=== PATIENT | female | born 1935 | race Caucasian/White ===

== ENCOUNTER 2019-06-17 07:50 | Observation (INO) | payer OTHER ==
[2019-06-15 12:14] LABS: BASOPHILS % (AUTO) 0.3 % (0.0-5.0); EOSINOPHILS % (AUTO) 1.8 % (0.0-8.0); HEMATOCRIT 36.9 % (36-48); LYMPHOCYTES % (AUTO) 15.2 % (21.0-51.0); MEAN CORPUSCULAR HEMOGLOBIN 28.8 pg (27.0-33.0); MEAN CORPUSCULAR HGB CONC 31.7 g/dL (32.0-36.0); MEAN CORPUSCULAR VOLUME 90.9 fL (79-99); MONOCYTES % (AUTO) 8.2 % (3.0-13.0); NEUTROPHILS % (AUTO) 74.4 % (40.0-77.0); PLATELET COUNT (AUTO) 266 K/uL (130-400); RED BLOOD CELL COUNT(AUTO) 4.06 MIL/uL (4.00-5.50); RED CELL DISTRIBUTION WIDTH 15.3 % (11.0-15.5); WHITE BLOOD COUNT (AUTO) 7.2 K/uL (4.8-10.8)
[2019-06-15 12:16] LABS: POTASSIUM 4.6 mmol/L (3.5-5.1)
[2019-06-15 12:25] LABS: INR 0.99 (0.85-1.15); PARTIAL THROMBOPLASTIN TIME 25.9 SEC (26.3-35.5); PROTHROMBIN TIME 10.4 SEC (9.6-11.6)
[2019-06-15 12:28] LABS: APPEARANCE,URINE Clear (CLEAR); BILIRUBIN,URINE Negative (NEGATIVE); COLOR,URINE Yellow (YELLOW); GLUCOSE, URINE (UA) Negative (NEGATIVE); KETONES,URINE Negative (NEGATIVE); LEUKOCYTE ESTERASE ,URINE Moderate (NEGATIVE); NITRATE,URINE Negative (NEGATIVE); OCCULT BLOOD,URINE Negative (NEGATIVE); PH,URINE 6.5 (5.0-8.0); PROTEIN,URINE Negative (NEGATIVE); UROBILINOGEN,URINE 0.2 mg/dL (0.2-1.0)
[2019-06-15 12:33] LABS: BACTERIA,URINE Rare /HPF (None Seen); RBC,URINE 0-1 /HPF (0-1); SQUAMOUS EPITHELIAL CELL,UR Rare /HPF (0-2); WBC,URINE 0-1 /HPF (0-1)
[2019-06-15 12:58] VITALS: BP 118/56
[~2019-06-17] VITALS: Ht 157.5 cm; Wt 92.9 kg
[~2019-06-17 07:50] MED LIST: ACET-2893 PO; ASPI-555 PO; CYAN-35 PO; FLUO10CA22 PO; FURO40TA5 PO; INSLAN SQ; ISOS30TA6 PO; LEVO75TA10 PO; LISI2.5T2 PO; METF-446 PO; METO-391 PO; MULT1TAB70 PO; OXYB-66 PO; PREG200C28 PO; ROSU10TA28 PO; SITA100T12 PO
[2019-06-17 08:40] VITALS: BP 113/63
[2019-06-17] MEDS: SODIUM CHLORIDE 0.9% 1000ML 1,000 ML IV SCH ×3 (10:32→17:01)
--- NOTE | 2019-06-17 12:05 | NUR ---
PT LEFT VIA WHEELCHAIR IN PVT CAR, NO COMPLICATIONS, DRESSING IS DRY AND INTACT. NO PAIN, D/C INSTRUCTIONS GIVEN TO SON. PT STABLE
[2019-06-17] MEDS ORDERED: HEPARIN SODIUM 1000UNIT/ML 10ML VIAL ONE (12:17)
[2019-06-17] MEDS ORDERED: IOHEXOL-350 50ML VIAL IV ONE ×2 (12:17→13:45)
[2019-06-17] MEDS ORDERED: NITROGLYCERIN 2 MG/VIAL VIAL IV ONE (12:17)
[2019-06-17] MEDS ORDERED: IOHEXOL 350 MG/ML 100ML INFUS..BTL IV ONE (12:17)
[2019-06-17] MEDS ORDERED: LIDOCAINE HCL 2% 20ML ONE (12:17)
[2019-06-17] MEDS ORDERED: SODIUM BICARB 50MEQ 50ML VIAL ONE (12:17)
[2019-06-17] MEDS ORDERED: MIDAZOLAM HCL 1 MG/ML 2ML VIAL ONE ×2 (12:41→12:56)
[2019-06-17] MEDS ORDERED: MEPERIDINE-PF 25 MG/ML SYG ONE ×2 (12:41→12:56)
[2019-06-17] MEDS ORDERED: CLOPIDOGREL BISULFATE 300 MG TAB ONE (13:50)
[2019-06-17] MEDS ORDERED: ASPIRIN 81MG TAB.CHEW ONE (13:51)
[2019-06-17] MEDS ORDERED: CLOPIDOGREL BISULFATE 300 MG TAB PO SCH (14:30)
[2019-06-17] MEDS ORDERED: ACETAMINOPHEN EXTENDED RELEASE 650 MG TABLET PO PRN (14:30)
[2019-06-17] MEDS ORDERED: ACETAMINOPHEN-CODEINE 300/30MG TAB PO PRN ×2 (14:30)
[2019-06-17] MEDS ORDERED: DEXTROSE 50%-WATER 50 ML DISP.SYRIN IV PRN (14:30)
[2019-06-17] MEDS ORDERED: GLUCAGON 1MG KIT 1 MG ML IM PRN (14:30)
[2019-06-17] MEDS ORDERED: ONDANSETRON HCL 4 MG/2 ML VIAL IVP PRN (14:30)
[2019-06-17 14:45] VITALS: BP 122/65
[2019-06-17 16:30] VITALS: BP 133/64
[2019-06-17] MEDS: INSULIN HUMULIN R 100 UNIT/ML 3ML SQ SCH ×2 (16:30→20:53)
[2019-06-17 19:00] VITALS: BP 116/56
--- NOTE | 2019-06-17 19:35 | NUR ---
PM NOTE PATIENT RESTING IN BED, NO S/S OF DISTRESS. PATIENT DENIES PAIN AT THIS TIME. NO SHORTNESS OF BREATH NOTED. PATIENT ON ROOM AIR, ON TELEMETRY PATIENT IS PACED AT 64. SITE C/D/I. NO HEMATOMA/BLEEDING NOTED. REMINDED THAT BEDREST IS UP AT 2100. CALL LIGHT WITHIN REACH. INSTRUCTED TO CALL FOR ASSISTANCE. VERBALIZED UNDERSTANDING.
[2019-06-17] MEDS: METOPROLOL TARTRATE 25 MG TAB PO SCH (20:48)
[2019-06-17] MEDS ORDERED: PREGABALIN 100 MG CAPSULE PO SCH (21:00)
[2019-06-17] MEDS ORDERED: LINAGLIPTIN 5 MG TABLET PO SCH (21:00)
[2019-06-17] MEDS ORDERED: ATORVASTATIN CALCIUM 20 MG TABLET PO SCH (21:00)
[2019-06-17 23:00] VITALS: BP 114/52
[2019-06-18] MEDS: SODIUM CHLORIDE 0.9% 1000ML 1,000 ML IV SCH (00:16)
[2019-06-18 03:38] LABS: HEMATOCRIT 35.9 % (36-48); MEAN CORPUSCULAR HEMOGLOBIN 29.1 pg (27.0-33.0); MEAN CORPUSCULAR HGB CONC 30.4 g/dL (32.0-36.0); PLATELET COUNT (AUTO) 212 K/uL (130-400); RED BLOOD CELL COUNT(AUTO) 3.74 MIL/uL (4.00-5.50); RED CELL DISTRIBUTION WIDTH 17.2 % (11.0-15.5); WHITE BLOOD COUNT (AUTO) 6.2 K/uL (4.8-10.8)
[2019-06-18 03:50] LABS: CREATININE 0.9 mg/dL (0.5-1.5); POTASSIUM 3.4 mmol/L (3.5-5.1)
[2019-06-18 04:00] VITALS: BP 128/71
[2019-06-18 05:11] LABS: PLATELET MORPHOLOGY PLT CLUMPS PRESENT
[2019-06-18] MEDS: INSULIN HUMULIN R 100 UNIT/ML 3ML SQ SCH (06:16)
[2019-06-18] MEDS ORDERED: LEVOTHYROXINE 75 MCG TABLET PO SCH (06:30)
[2019-06-18 07:18] VITALS: BP 123/68
[2019-06-18] MEDS ORDERED: CLOP75TA14 PO (07:43)
[2019-06-18] MEDS: METOPROLOL TARTRATE 25 MG TAB PO SCH (08:23)
[2019-06-18] MEDS ORDERED: FUROSEMIDE 40 MG TABLET PO SCH (09:00)
[2019-06-18] MEDS ORDERED: ISOSORBIDE MONO 30MG TAB SR PO SCH (09:00)
[2019-06-18] MEDS ORDERED: LISINOPRIL 2.5 MG TABLET PO SCH (09:00)
[2019-06-18] MEDS ORDERED: INSULIN GLARGINE 100 UNITS/ML 10 ML VIAL SQ SCH (09:00)
[2019-06-18] MEDS ORDERED: OXYBUTYNIN 5 MG TAB.SR.24H PO SCH (09:00)
[2019-06-18] MEDS ORDERED: MULTIVITAMIN TABLET PO SCH (09:00)
[2019-06-18] MEDS ORDERED: CLOPIDOGREL BISULFATE 75 MG TAB PO SCH (09:00)
[2019-06-18] MEDS ORDERED: FLUOXETINE HCL 10 MG CAPSULE PO SCH (09:00)
[2019-06-18] MEDS ORDERED: ASPIRIN 81 MG EC TAB PO SCH (09:00)
[2019-06-19] MEDS ORDERED: CYANOCOBALAMIN (VITAMIN B-12) 1,000 MCG TABLET PO SCH (09:00)
[2019-08-24] MEDS ORDERED: PEPCID COMPLETE PO (12:44)
[2019-08-24] MEDS ORDERED: POTA20TA82 PO (12:44)
[2019-08-24] MEDS ORDERED: pepcid (12:44)
[2019-08-24] MEDS ORDERED: GABA-529 PO (12:44)
[2019-08-24] MEDS ORDERED: METO-408 PO (12:44)
[2019-08-24] MEDS ORDERED: CLOP75TA32 PO (12:44)
[2019-08-24] MEDS ORDERED: VITA1CAP85 PO (12:49)
[2019-08-24] MEDS ORDERED: OMEP20CA12 PO (12:49)
== END 2019-06-18 11:00 | disposition home or self-care (01) ==
LOC: DAH 07:50 → 2AH 07:51
PROVIDERS: ADMIT Internal Medicine; ATTEND Internal Medicine
DX: I25.119 Atherosclerotic heart disease of native coronary artery with unspecified angina pectoris (principal); I25.82 Chronic total occlusion of coronary artery; I27.20 Pulmonary hypertension, unspecified; I35.0 Nonrheumatic aortic (valve) stenosis; I10 Essential (primary) hypertension; E78.5 Hyperlipidemia, unspecified; E11.9 Type 2 diabetes mellitus without complications; E03.9 Hypothyroidism, unspecified; Z95.1 Presence of aortocoronary bypass graft; Z79.82 Long term (current) use of aspirin; Z79.4 Long term (current) use of insulin; Z79.899 Other long term (current) drug therapy
CPT/HCPCS: 36415 ×3; 71045; 80048 ×2; 81001; 82948 ×4; 85025; 85027; 85347; 85610; 85730; 93005; 96372; A4215; A4216; A4221; A4222; A4223 ×3; A4606; A4663; C1760; C1769 ×3; C1874 ×2; C1887; C1893; C1894; G0378 ×21; J1644; J2175 ×2; J2250 ×2; J3490 ×3; J7030; Q9965 ×2; Q9967 ×2; 93461; 99156; 99157; C9600; C9601

== ENCOUNTER 2019-08-26 06:47 | Observation (INO) | payer OTHER ==
[2019-08-24 11:40] LABS: BASOPHILS % (AUTO) 0.2 % (0.0-5.0); EOSINOPHILS % (AUTO) 1.4 % (0.0-8.0); HEMATOCRIT 37.3 % (36-48); LYMPHOCYTES % (AUTO) 15.7 % (21.0-51.0); MEAN CORPUSCULAR HEMOGLOBIN 29.7 pg (27.0-33.0); MEAN CORPUSCULAR HGB CONC 31.1 g/dL (32.0-36.0); MEAN CORPUSCULAR VOLUME 95.4 fL (79-99); MONOCYTES % (AUTO) 8.8 % (3.0-13.0); NEUTROPHILS % (AUTO) 73.7 % (40.0-77.0); PLATELET COUNT (AUTO) 242 K/uL (130-400); RED BLOOD CELL COUNT(AUTO) 3.91 MIL/uL (4.00-5.50); WHITE BLOOD COUNT (AUTO) 6.5 K/uL (4.8-10.8)
[2019-08-24 11:41] VITALS: BP 118/63
[2019-08-24 11:46] LABS: CREATININE 1.1 mg/dL (0.5-1.5); POTASSIUM 4.2 mmol/L (3.5-5.1)
[2019-08-24 11:52] LABS: INR 1.03 (0.85-1.15); PARTIAL THROMBOPLASTIN TIME 25.7 SEC (26.3-35.5); PROTHROMBIN TIME 10.8 SEC (9.6-11.6)
[~2019-08-26] VITALS: Ht 156.2 cm; Wt 89.9 kg
[2019-08-26] VITALS (14 sets, daily range): BP systolic 91–127; BP diastolic 48–80
[~2019-08-26 06:47] MED LIST changes: -ACET-2893 PO; +CLOP75TA32 PO; +GABA-529 PO; -ISOS30TA6 PO; -METO-391 PO; +METO-408 PO; +OMEP20CA12 PO; +PEPCID COMPLETE PO; +POTA20TA82 PO; +SODIUM CHLORIDE 0.9% 1000ML 1,000 ML IV SCH
--- NOTE | 2019-08-26 07:15 | NUR ---
PATIENT ARRIVED TO DAY PATIENT ACCOMPANIED ACCOMPANIED BY DAUGHTER, SON IN LAW AND GRANDSON. PATIENT AAOX3, RESPIRATIONS UNLABORED, VITAL SIGNS STABLE, DENIES ANY PAIN AT THIS TIME. PROCEDURE VERIFIED WITH PATIENT AND FAMILY, PATIENT AND FAMILY VERBALIZED UNDERSTANDING AND HOSPITAL ROUTINE EXPLAINED. PATIENT HAS A 4 PRONG CANE AT BEDSIDE.
[2019-08-26] MEDS ORDERED: CEFAZOLIN SODIUM 1 GM VIAL ONE (09:34)
[2019-08-26] MEDS ORDERED: BUPIVACAINE/PF 0.25% 30ML VIAL IJ ONE (09:34)
[2019-08-26] MEDS ORDERED: MIDAZOLAM HCL 1 MG/ML 2ML VIAL ONE ×2 (09:35→10:33)
[2019-08-26] MEDS ORDERED: LIDOCAINE HCL 1% MDV 50ML VIAL ONE (09:35)
[2019-08-26] MEDS ORDERED: MEPERIDINE-PF 25 MG/ML SYG ONE ×2 (09:35→10:33)
[2019-08-26] MEDS ORDERED: IODIXANOL 320 MG/ML 100 ML VIAL ONE (09:35)
--- NOTE | 2019-08-26 09:35 | NUR ---
PATIENT TRANSFERRED TO PHOTOENGRAVING RETOUCHER VIA BED BY MARIE DAWSON
[2019-08-26] MEDS ORDERED: ONDANSETRON HCL 4 MG/2 ML VIAL IV PRN (11:30)
[2019-08-26] MEDS ORDERED: GABAPENTIN 100 MG CAPSULE PO PRN (11:30)
[2019-08-26] MEDS: INSULIN HUMULIN R 100 UNIT/ML 3ML SQ SCH ×3 (11:30→21:00)
[2019-08-26] MEDS ORDERED: DEXTROSE 50%-WATER 50 ML DISP.SYRIN IV PRN (11:30)
--- NOTE | 2019-08-26 12:35 | NUR ---
PATIENT RETURNED FROM CATH PATIENT BROUGHT BACK TO DAY PATIENT VIA BED BY MARIE DAWSON. PATIENT AAOX3, RESPIRATIONS UNLABORED, VITAL SIGNS STABLE, DENIES ANY PAIN AT THIS TIME. PRESSURE DRESSING TO LEFT UPPER CHEST WALL, NO BLEEDING OR DRAINAGE NOTED. SLING IN PLACE. ICE PACK APPLIED ON TOP OF DRESSING. FAMILY AT BEDSIDE.
[2019-08-26] MEDS ORDERED: PREGABALIN 75 MG CAPSULE PO PRN (12:45)
--- NOTE | 2019-08-26 12:50 | NUR ---
DRESSING/SITE CHECK PRESSURE DRESSING TO LEFT UPPER CHEST WALL, NO BLEEDING OR DRAINAGE NOTED. SLING IN PLACE. ICE PACK IN PLACE. FAMILY AT BEDSIDE.
--- NOTE | 2019-08-26 13:05 | NUR ---
DRESSING/SITE CHECK PRESSURE DRESSING TO LEFT UPPER CHEST WALL, NO BLEEDING OR DRAINAGE NOTED. SLING IN PLACE. ICE PACK IN PLACE. FAMILY AT BEDSIDE.
--- NOTE | 2019-08-26 13:20 | NUR ---
DRESSING/SITE CHECK PRESSURE DRESSING TO LEFT UPPER CHEST WALL, NO BLEEDING OR DRAINAGE NOTED. SLING IN PLACE. ICE PACK IN PLACE. FAMILY AT BEDSIDE.
--- NOTE | 2019-08-26 13:22 | NUR ---
REPORT REPORT/HAND OFF COMMUNICATION GIVEN TO MARIE ARRIAZA USING SBAR. ALL QUESTIONS/CONCERNS ANSWERED.
--- NOTE | 2019-08-26 13:40 | NUR ---
PATIENT TRANSFERRED PATIENT TAKEN TO ROOM 226 VIA BED AND LEFT IN ROOM WITH MARIE ARRIAZA AND FAMILY MEMBERS.
[2019-08-26] MEDS: CEFAZOLIN SODIUM 1 GM VIAL IVP SCH (18:29)
[2019-08-26] MEDS ORDERED: FAMOTIDINE 20MG TAB 20 MG TAB PO PRN (21:00)
[2019-08-26] MEDS ORDERED: ATORVASTATIN CALCIUM 20 MG TABLET PO SCH (21:00)
[2019-08-26] MEDS ORDERED: CLOPIDOGREL BISULFATE 75 MG TAB PO SCH (21:00)
[2019-08-27 00:28] VITALS: BP 127/67
[2019-08-27] MEDS: CEFAZOLIN SODIUM 1 GM VIAL IVP SCH (02:53)
[2019-08-27 04:32] VITALS: BP 125/66
[2019-08-27] MEDS: INSULIN HUMULIN R 100 UNIT/ML 3ML SQ SCH ×2 (07:30→12:05)
--- NOTE | 2019-08-27 08:00 | NUR ---
AM ASSESSMENT PT LAYING IN BED, HOB ELEVATED 30 DEGREES, RESTING. A/O X 3. NO SOB. NO DISTRESS NOTED. DENIES CHEST PAIN OR DISCOMFORT. DENIES INCISIONAL PAIN. TELE: V PACED. LT UPPER CHEST DSG DRY & INTACT. NO BLEEDING, NO HEMATOMA NOTED. SLING TO LT ARM. ARM PRECAUTIONS REINFORCED @ THIS TIME. DENIES N/V AND/OR DIARRHEA. UP W/ASSISTANCE. INSTRUCTED TO CALL FOR ASSISTANCE. CALL KAYLIN W/IN REACH.
[2019-08-27 08:07] VITALS: BP 110/62
[2019-08-27] MEDS ORDERED: POTASSIUM CHLORIDE 20 MEQ ERTAB PO SCH (09:00)
[2019-08-27] MEDS ORDERED: MULTIVITAMIN TABLET PO SCH (09:00)
[2019-08-27] MEDS ORDERED: FUROSEMIDE 40 MG TABLET PO SCH (09:00)
[2019-08-27] MEDS ORDERED: LEVOTHYROXINE 75 MCG TABLET PO SCH (09:00)
[2019-08-27] MEDS ORDERED: FLUOXETINE HCL 10 MG CAPSULE PO SCH (09:00)
[2019-08-27] MEDS ORDERED: PANTOPRAZOLE SODIUM 40 MG TABLET.DR PO SCH (09:00)
[2019-08-27] MEDS ORDERED: OXYBUTYNIN 5 MG TAB.SR.24H PO SCH (09:00)
[2019-08-27] MEDS ORDERED: CYANOCOBALAMIN (VITAMIN B-12) 1,000 MCG TABLET PO SCH (09:00)
[2019-08-27] MEDS ORDERED: INSULIN GLARGINE 100 UNITS/ML 10 ML VIAL SQ SCH (09:00)
[2019-08-27] MEDS ORDERED: ASPIRIN 81 MG EC TAB PO SCH (09:00)
[2019-08-27] MEDS ORDERED: METOPROLOL SUCCINATE 50 MG TAB.SR.24H PO SCH (09:00)
[2019-08-27] MEDS ORDERED: LISINOPRIL 2.5 MG TABLET PO SCH (09:00)
--- NOTE | 2019-08-27 11:45 | NUR ---
DISCHARGE VERBAL & WRITTEN DISCHARGE INSTRUCTIONS REVIEWED & GIVEN TO PT. QUESTIONS ENCOURAGED & CLARIFIED. PROPER CARE & ACTIVITY AFTER BiV PPM PLACEMENT REVIEWED. ARM PRECAUTIONS REINFORCED. NEW PRESCRIBED MEDICATIONS REVIEWED. REINFORCED IMPORTANCE OF TAKING ABX INDICATED. TELE ANTONIO REMOVED. IV DC'D. PT TO GATHER PERSONAL BELONGINGS. WILL NOTIFY STAFF WHEN FAMILY ARRIVES TO TAKE PT HOME.
[2019-08-27 11:56] VITALS: BP 131/66
--- NOTE | 2019-08-27 12:27 | NUR ---
DISCHARGE FAMILY HERE TO TAKE PT HOME. PT TAKEN TO PRIVATE VEHICLE VIA WC BY Anish AVILA PCP.
[2019-08-27] MEDS ORDERED: LINAGLIPTIN 5 MG TABLET PO SCH (21:00)
== END 2019-08-27 12:27 | disposition home or self-care (01) ==
LOC: DAH 06:47 → DAHIP 06:48 → DAH 06:48 → 2DH 14:51
PROVIDERS: ADMIT Internal Medicine Pulmonary Disease; ATTEND Internal Medicine Pulmonary Disease
DX: I25.5 Ischemic cardiomyopathy (principal); I49.5 Sick sinus syndrome; I11.0 Hypertensive heart disease with heart failure; I50.22 Chronic systolic (congestive) heart failure; I25.810 Atherosclerosis of coronary artery bypass graft(s) without angina pectoris; E78.5 Hyperlipidemia, unspecified; E11.9 Type 2 diabetes mellitus without complications; E03.9 Hypothyroidism, unspecified; F32.9 Major depressive disorder, single episode, unspecified; I35.0 Nonrheumatic aortic (valve) stenosis; Z95.5 Presence of coronary angioplasty implant and graft; Z88.6 Allergy status to analgesic agent; Z95.0 Presence of cardiac pacemaker; Z79.4 Long term (current) use of insulin; Z79.899 Other long term (current) drug therapy; Z79.02 Long term (current) use of antithrombotics/antiplatelets
CPT/HCPCS: 33225; 33229; 36415; 71046; 80048; 82948 ×6; 85025; 85610; 85730; 93005; 96372; 96374; 96376; A4215; A4216; A4221; A4222; A4223 ×3; A4606; A4663; C1769 ×2; C1894; C1900; C2621; G0378 ×19; J0690 ×3; J2175 ×2; J2250 ×2; J3490 ×2; Q9967; 99156; 99157; C1882

== ENCOUNTER 2020-12-26 05:42 | Day surgery (SDC) | payer OTHER ==
[2020-12-23 13:47] LABS: BASOPHILS % (AUTO) 0.4 % (0.0-5.0); EOSINOPHILS % (AUTO) 4.7 % (0.0-8.0); HEMATOCRIT 34.2 % (36-48); LYMPHOCYTES % (AUTO) 18.9 % (21.0-51.0); MEAN CORPUSCULAR HGB CONC 31.6 g/dL (32.0-36.0); MONOCYTES % (AUTO) 9.5 % (3.0-13.0); NEUTROPHILS % (AUTO) 66.3 % (40.0-77.0); PLATELET COUNT (AUTO) 225 K/uL (130-400); WHITE BLOOD COUNT (AUTO) 5.7 K/uL (4.8-10.8)
[2020-12-23 14:09] LABS: CREATININE 1.1 mg/dL (0.5-1.5); INR 1.07 (0.85-1.15); POTASSIUM 3.9 mmol/L (3.5-5.1); PROTHROMBIN TIME 11.6 SEC (9.6-11.6)
[2020-12-23 14:11] LABS: PARTIAL THROMBOPLASTIN TIME 25.9 SEC (26.3-35.5)
[2020-12-23 14:19] LABS: APPEARANCE,URINE CLEAR (CLEAR); BILIRUBIN,URINE NEGATIVE (NEGATIVE); COLOR,URINE YELLOW (YELLOW); GLUCOSE, URINE (UA) NEGATIVE (NEGATIVE); KETONES,URINE NEGATIVE (NEGATIVE); LEUKOCYTE ESTERASE ,URINE MODERATE (NEGATIVE); NITRATE,URINE NEGATIVE (NEGATIVE); OCCULT BLOOD,URINE NEGATIVE (NEGATIVE); PH,URINE 5.5 (5.0-8.0); PROTEIN,URINE NEGATIVE (NEGATIVE); UROBILINOGEN,URINE 0.2 mg/dL (0.2-1.0)
[2020-12-23 15:21] LABS: BACTERIA,URINE Few /HPF (None Seen); RBC,URINE 0-1 /HPF (0-1)
[2020-12-23 15:25] VITALS: BP 111/60
[2020-12-26] VITALS (12 sets, daily range): BP systolic 102–149; BP diastolic 50–62
[~2020-12-26] VITALS: Ht 157.5 cm; Wt 80.9 kg
[~2020-12-26 05:42] MED LIST changes: +ACET-2893 PO; -ASPI-555 PO; +ASPI-556 PO; -FLUO10CA22 PO; +FLUO10CA23 PO; +MULT-660 PO; -MULT1TAB70 PO; -OMEP20CA12 PO; +PANT40TA54 PO; -PEPCID COMPLETE PO; -POTA20TA82 PO; -PREG200C28 PO; -ROSU10TA28 PO; -SODIUM CHLORIDE 0.9% 1000ML 1,000 ML IV SCH
[2020-12-26] MEDS ORDERED: NACL 0.9% 1000ML 1,000 ML IV SCH ×2 (08:00→10:30)
[2020-12-26] MEDS ORDERED: SODIUM BICARB 50MEQ 50ML VIAL 50 ML ONE (08:39)
[2020-12-26] MEDS ORDERED: IOHEXOL 350 MG/ML 100ML INFUS..BTL IV ONE (08:40)
[2020-12-26] MEDS ORDERED: MEPERIDINE-PF 25 MG/ML SYG ONE (08:40)
[2020-12-26] MEDS ORDERED: IOHEXOL-350 50ML VIAL IV ONE (08:40)
[2020-12-26] MEDS ORDERED: HEPARIN 10,000 UNIT/10ML (1,000 UNIT/ML) VIAL ONE (08:40)
[2020-12-26] MEDS ORDERED: LIDOCAINE HCL 400MG/20ML VIAL ONE (08:40)
[2020-12-26] MEDS ORDERED: MIDAZOLAM HCL 1 MG/ML 2ML VIAL ONE (08:40)
[2020-12-26] MEDS ORDERED: NITROGLYCERIN 2 MG VIAL IV ONE (08:40)
== END 2020-12-26 16:25 | disposition home or self-care (01) ==
LOC: DAH 05:42
PROVIDERS: ATTEND Internal Medicine Cardiovascular Disease
DX: I25.119 Atherosclerotic heart disease of native coronary artery with unspecified angina pectoris (principal); I35.0 Nonrheumatic aortic (valve) stenosis; I25.82 Chronic total occlusion of coronary artery; Q25.0 Patent ductus arteriosus; I27.20 Pulmonary hypertension, unspecified; I11.0 Hypertensive heart disease with heart failure; I50.42 Chronic combined systolic (congestive) and diastolic (congestive) heart failure; I25.5 Ischemic cardiomyopathy; I25.2 Old myocardial infarction; I45.10 Unspecified right bundle-branch block; E78.5 Hyperlipidemia, unspecified; E03.9 Hypothyroidism, unspecified; E11.9 Type 2 diabetes mellitus without complications; F32.9 Major depressive disorder, single episode, unspecified; Z79.84 Long term (current) use of oral hypoglycemic drugs; Z79.82 Long term (current) use of aspirin; Z98.890 Other specified postprocedural states; Z79.01 Long term (current) use of anticoagulants; Z79.899 Other long term (current) drug therapy; Z95.5 Presence of coronary angioplasty implant and graft; Z82.49 Family history of ischemic heart disease and other diseases of the circulatory system
CPT/HCPCS: 36415; 71045; 80048; 81001; 82948; 85025; 85610; 85730; 87088; 93005; 93461; A4215; A4216; A4221; A4222; A4223 ×3; A4606; A4663; C1760; C1769; C1893; C1894 ×2; J1644; J2175; J2250; J3490 ×3; J7030; Q9965; Q9967 ×2; 96360; 96361; 99156; 99157

== ENCOUNTER 2021-09-01 09:58 | Emergency (ER) | payer OTHER ==
[~2021-09-01] VITALS: Ht 157.5 cm; Wt 80.7 kg
[~2021-09-01 09:58] MED LIST changes: -FLUO10CA23 PO; +FLUO10CA24 PO; +LISI2.5T13 PO; -LISI2.5T2 PO
[2021-09-01 10:21] LABS: BASOPHILS % (AUTO) 0.3 % (0.0-5.0); HEMATOCRIT 36.9 % (36-48); LYMPHOCYTES % (AUTO) 11.7 % (21.0-51.0); MEAN CORPUSCULAR HEMOGLOBIN 29.2 pg (27.0-33.0); MEAN CORPUSCULAR HGB CONC 32.2 g/dL (32.0-36.0); MEAN CORPUSCULAR VOLUME 90.4 fL (79-99); MONOCYTES % (AUTO) 8.6 % (3.0-13.0); NEUTROPHILS % (AUTO) 78.1 % (40.0-77.0); PLATELET COUNT (AUTO) 208 K/uL (130-400); RED BLOOD CELL COUNT(AUTO) 4.08 MIL/uL (4.00-5.50); RED CELL DISTRIBUTION WIDTH 13.2 % (11.0-15.5); WHITE BLOOD COUNT (AUTO) 8.7 K/uL (4.8-10.8)
[2021-09-01 10:22] LABS: APPEARANCE,URINE CLEAR (CLEAR); BILIRUBIN,URINE NEGATIVE (NEGATIVE); COLOR,URINE YELLOW (YELLOW); GLUCOSE, URINE (UA) NEGATIVE (NEGATIVE); KETONES,URINE NEGATIVE (NEGATIVE); LEUKOCYTE ESTERASE ,URINE SMALL (NEGATIVE); NITRATE,URINE NEGATIVE (NEGATIVE); OCCULT BLOOD,URINE NEGATIVE (NEGATIVE); PROTEIN,URINE NEGATIVE (NEGATIVE); UROBILINOGEN,URINE 0.2 mg/dL (0.2-1.0)
[2021-09-01 10:28] LABS: CREATININE 1.1 mg/dL (0.5-1.5); POTASSIUM 3.3 mmol/L (3.5-5.1)
[2021-09-01 10:35] LABS: ALBUMIN 3.9 g/dL (3.5-5.0); BILIRUBIN,TOTAL 0.4 mg/dL (0.2-1.0); TOTAL PROTEIN, SERUM 7.7 g/dL (6.0-8.3)
[2021-09-01 10:58] LABS: BACTERIA,URINE Few /HPF (None Seen); RBC,URINE 0-1 /HPF (0-1); SQUAMOUS EPITHELIAL CELL,UR 0-2 /HPF (0-2)
[2021-09-01 11:20] VITALS: BP 123/65
== END 2021-09-01 14:00 | disposition home or self-care (01) ==
LOC: EDH 10:01
DX: R42 Dizziness and giddiness (principal); I35.0 Nonrheumatic aortic (valve) stenosis; I10 Essential (primary) hypertension; I25.2 Old myocardial infarction; E11.9 Type 2 diabetes mellitus without complications; E78.00 Pure hypercholesterolemia, unspecified; Z95.1 Presence of aortocoronary bypass graft; Z88.6 Allergy status to analgesic agent; Z88.8 Allergy status to other drugs, medicaments and biological substances; Z79.4 Long term (current) use of insulin; Z79.82 Long term (current) use of aspirin; Z79.899 Other long term (current) drug therapy
CPT/HCPCS: 36415; 71045; 80053; 81001; 84484; 85025; 93005